=== PATIENT | male | born 1985 | race Caucasian/White ===

== ENCOUNTER 2017-01-04 21:49 | Emergency (ER) | payer BC ==
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
[2017-01-04 22:03] VITALS: BP 103/56; PULSE 82; TEMP 97.5; BMI 18.3
== END 2017-01-04 22:35 | disposition home or self-care (01) ==
LOC: FER 21:49
DX: S90.31XA Contusion of right foot, initial encounter (principal); W20.8XXA Other cause of strike by thrown, projected or falling object, initial encounter; Y93.89 Activity, other specified; Y92.9 Unspecified place or not applicable; F17.210 Nicotine dependence, cigarettes, uncomplicated
CPT/HCPCS: 73630-TC-RT; 99281-25

== ENCOUNTER 2017-02-09 12:05 | Emergency (ER) | payer BC ==
[2017-02-09 12:10] VITALS: BP 115/75; PULSE 73; TEMP 97.9; BMI 18.3
[2017-02-09] MEDS ORDERED: ONDANSETRON *ODT* 4 MG TABLET SL ONE (13:07)
[2017-02-09] MEDS ORDERED: IBUPROFEN 600 MG TABLET (FP) PO ONE ×2 (13:07→13:09)
--- NOTE | 2017-02-09 13:08 | PDOC ---
History of Present Illness - General Chief Complaint: Nausea/Vomiting Stated Complaint: NAUSEA/VOMITING Time Seen by Provider: 02/09/17 12:48 History Source: Patient Exam Limitations: No Limitations - History of Present Illness Initial Comments: 02/09/17 13:37 Patient is a 31-year-old male with no past medical history who presents to the emergency department with 2 days of nausea and vomiting after eating a salad in a restaurant. Patient states that he vomited 3 times yesterday. He states that he still remains nauseous today and has diffuse abdominal pain. He has not vomited today. Denies diarrhea, fevers, chills, constipation, frequency, urgency , hematuria, dysuria. Denies recent travel, recent antibiotic use. Past History - Travel Traveled outside of the country in the last 30 days: No Close contact w/someone who was outside of country & ill: No - Past Medical History Allergies/Adverse Reactions: Allergies Allergy/AdvReac Type Severity Reaction Status Date / Time No Known Allergies Allergy Verified 02/09/17 12:06 Home Medications: Ambulatory Orders Ondansetron [Zofran Odt -] 4 mg SL TID #21 od.tablet 02/09/17 COPD: No DVT: No Dementia: No - Immunization History Immunization Up to Date: Yes - Suicide/Smoking/Psychosocial Hx Smoking History: Current some day smoker Have you smoked in the past 12 months: Yes Number of Cigarettes Smoked Daily: 4 Information on smoking cessation initiated: No 'Breaking Loose' booklet given: 01/19/17 Hx Alcohol Use: No Drug/Substance Use Hx: No Substance Use Type: None Review of Systems - Review of Systems Able to Perform ROS?: Yes Comments:: 02/09/17 13:41 CONSTITUTIONAL: Absent: fever, chills, diaphoresis, generalized weakness, malaise, loss of appetite HEENT: Absent: rhinorrhea, nasal congestion, throat pain, throat swelling, difficulty swallowing, mouth swelling, ear pain, eye pain, visual Changes CARDIOVASCULAR: Absent: chest pain, loss of consciousness, palpitations, irregular heart rate, peripheral edema RESPIRATORY: Absent: cough, shortness of breath, dyspnea with exertion, orthopnea, wheezing, stridor, hemoptysis GASTROINTESTINAL: Present: abdominal pain, nausea, vomiting Absent: abdominal distension, diarrhea , constipation, melena, hematochezia GENITOURINARY: Absent: dysuria, frequency, urgency, hesitancy, hematuria, flank pain, genital pain MUSCULOSKELETAL: Absent: myalgia, arthralgia, joint swelling SKIN: Absent: rash, itching, pallor HEMATOLOGIC/IMMUNOLOGIC: Absent: easy bleeding, easy bruising, lymphadenopathy, frequent infections ENDOCRINE: Absent: unexplained weight gain, unexplained weight loss, heat intolerance, cold intolerance NEUROLOGIC: Absent: headache, focal weakness or paresthesias, dizziness, unsteady gait, seizure, mental status changes, bladder or bowel incontinence PSYCHIATRIC: Absent: anxiety, depression, suicidal or homicidal ideation, hallucinations. Is the patient limited Uzbek proficient: No *Physical Exam - Vital Signs Last Vital Signs Temp Pulse Resp BP Pulse Ox 97.9 F 73 16 115/75 99 02/09/17 12:07 02/09/17 12:07 02/09/17 12:07 02/09/17 12:07 02/09/17 12:07 - Physical Exam Comments: 02/09/17 13:42 GENERAL: Well developed, well nourished. Awake and alert. No acute distress. Breathing easily laying on exam bed HEENT: Normocephalic, atraumatic. PERRLA, EOMI. No conjunctival pallor. Sclera are non- icteric. Moist mucous membranes. Oropharynx is clear. NECK: Supple. Full ROM. No JVD. Carotid pulses 2+ and symmetric, without bruits. No thyromegaly. No lymphadenopathy. CARDIOVASCULAR: Regular rate and rhythm. No murmurs, rubs, or gallops. Distal pulses are 2+ and symmetric. PULMONARY: No evidence of respiratory distress. Lungs clear to auscultation bilaterally. No wheezing, rales or rhonchi. ABDOMINAL: Diffuse abdominal tendernes. (-) rovsings, obturator psoas signs. Soft. Non- distended. No rebound or guarding. No organomegaly. Normoactive bowel sounds. MUSCULOSKELETAL Normal range of motion at all joints. No bony deformities or tenderness. No CVA tenderness. EXTREMITIES: No cyanosis. No clubbing. No edema. No calf tenderness. SKIN: Warm and dry. Normal capillary refill. No rashes. No jaundice. NEUROLOGICAL: Alert, awake, appropriate. Cranial nerves 2-12 intact. No deficits to light touch and temperature in face, upper extremities and lower extremities. No motor deficits in the in face, upper extremities and lower extremities. Normoreflexic in the upper and lower extremities. Normal speech. Toes are down- going bilaterally. Gait is normal without ataxia. PSYCHIATRIC: Cooperative. Good eye contact. Appropriate mood and affect. Medical Decision Making - Medical Decision Making 02/09/17 13:43 Patient is a 31-year-old male with no past medical history who presents to the emergency department today with 2 days of nausea vomiting after eating a salad and a restaurant. Most likely an acute gastroenteritis from the food he ate. Physical exam shows diffuse tenderness with negative signs for appendicitis. We' ll treat with Zofran, Motrin and reevaluate. 02/09/17 14:19 Patient is feeling much better after Zofran and Motrin. He has been able to tolerate water and crackers in the emergency department. He states that he feels much better and is ready to go home. We'll discharge home at this time. Patient given return precautions. *DC/Admit/Observation/Transfer Diagnosis at time of Disposition: Gastroenteritis - Discharge Dispostion Disposition: HOME Condition at time of disposition: Good Admit: No - Prescriptions Prescriptions: Ondansetron [Zofran Odt -] 4 mg SL TID #21 od.tablet - Referrals Referrals: Dylan Metzger MD [Primary Care Provider] - - Patient Instructions Printed Discharge Instructions: DI for Nausea -- Adult, DI for Vomiting -- Adult Additional Instructions: You had nausea and vomiting most likely caused by food. It should be self limiting. Please eat a bland diet for the next 2-3 days including plain rice, toast, bananas, apple sauce. Avoid fatty foods, greasy/oily foods, and dairy for 24 hours until after your symptoms resolve. You were prescribed zofran as needed for nausea and vomiting. Drink plenty of fluids including gatorade or juice. Follow up with your primary care doctor this week. Return to the ED if you have worsening vomiting, fevers, dehydration, worsening abdominal pain, or any changes in your symptoms. Tuviste nuseas y vmitos muy probablemente causados por comida. Debe ser autolimitado. Por favor, coma joy dieta blanda [place] los prximos 2 o 3 parra, incluyendo arroz natural, johnson tala, pltanos y salsa de manzana. Evite las comidas grasosas, grasosas / grasas y productos lcteos [place] 24 horas hasta que desaparezcan los sntomas. Le recetaron zofran segn sea necesario para las nuseas y los vmitos. Nataliia muchos lquidos, incluido el gatorade o el jugo. Maria Luz un seguimiento con swann mdico de atencin primaria esta semana. Regrese al departamento de emergencias si tiene vmitos, fiebre, deshidratacin , empeoramiento del dolor abdominal o cualquier cambio en radha sntomas. - Post Discharge Activity Forms/Work/School Notes: Back to Work, Parent(s) Back to Work Note
[2017-02-09] MEDS ORDERED: ONDANSETRON *ODT* 4 MG TABLET ONE (13:09)
== END 2017-02-09 14:02 | disposition home or self-care (01) ==
LOC: JERFT 12:05
DX: K52.9 Noninfective gastroenteritis and colitis, unspecified (principal)
CPT/HCPCS: 99281-25

== ENCOUNTER 2017-07-02 22:43 | Emergency (ER) | payer OTHER ==
[2017-07-02 22:54] VITALS: BP 117/64; PULSE 63; TEMP 98.1; BMI 17.4
[2017-07-03] MEDS ORDERED: ACETAMINOPHEN 325 MG TABLET (FP) PO ONE (00:53)
--- NOTE | 2017-07-03 01:02 | PDOC ---
History of Present Illness <Jonathan Garcia - Last Filed: 07/03/17 03:23> - History of Present Illness Initial Comments: 07/03/17 01:02 "The patient is a 31 year old male, with no significant past medical history, who presents to the emergency department with right sided neck, back, shoulder, and hand pain s/p injury earlier this evening. The patient reports he was at work mopping, when a table that was standing on its end, tipped over and fell forward, hitting his shoulder and upper back. Patient reports associated neck, back, shoulder, and hand pain. He denies any head trauma, LOC, headache, dizziness, lightheadedness, changes in vision, nausea, vomiting, changes in gait. Patient reports his pain is worse with palpation, but not with movement. He denies any other trauma. He denies any chest pain or shortness of breath. Allergies: NKDA Past Surgical History: None reported Social History: Non smoker. No ETOH or recreational drug use. PCP: Dr. Metzger " <Michael Tripathi - Last Filed: 07/04/17 17:19> - General Chief Complaint: Pain, Acute Stated Complaint: INJURY Time Seen by Provider: 07/03/17 00:37 Past History <Jonathan Garcia - Last Filed: 07/03/17 03:23> - Past Medical History COPD: No DVT: No Dementia: No - Immunization History Immunization Up to Date: Yes - Suicide/Smoking/Psychosocial Hx Smoking History: Never smoked Have you smoked in the past 12 months: No Number of Cigarettes Smoked Daily: 4 Information on smoking cessation initiated: No 'Breaking Loose' booklet given: 01/19/17 Hx Alcohol Use: No Drug/Substance Use Hx: No Substance Use Type: None <Michael Tripathi - Last Filed: 07/04/17 17:19> - Past Medical History Allergies/Adverse Reactions: Allergies Allergy/AdvReac Type Severity Reaction Status Date / Time No Known Allergies Allergy Verified 07/03/17 13:25 Home Medications: Ambulatory Orders NK [No Known Home Medication] 07/03/17 Review of Systems - Review of Systems Comments:: 07/03/17 01:02 "GENERAL/CONSTITUTIONAL: No fever or chills. No weakness. HEAD, EYES, EARS, NOSE AND THROAT: No change in vision. No ear pain or discharge. No sore throat. CARDIOVASCULAR: No chest pain or shortness of breath. RESPIRATORY: No cough, wheezing, or hemoptysis. GASTROINTESTINAL: No nausea, vomiting, diarrhea or constipation. GENITOURINARY: No dysuria, frequency, or change in urination. MUSCULOSKELETAL: Yes right sided neck, upper back, shoulder, and hand pain. SKIN: No rash NEUROLOGIC: No headache, vertigo, loss of consciousness, or change in strength. ENDOCRINE: No increased thirst. No abnormal weight change. HEMATOLOGIC/LYMPHATIC: No anemia, easy bleeding, or history of blood clots. ALLERGIC/IMMUNOLOGIC: No hives or skin allergy." <DeuceMichael - Last Filed: 07/04/17 17:19> *Physical Exam - Vital Signs Last Vital Signs Temp Pulse Resp BP Pulse Ox 98.1 F 63 16 117/64 100 07/02/17 22:53 07/02/17 22:53 07/02/17 22:53 07/02/17 22:53 07/02/17 22:53 <Jonathan Garcia - Last Filed: 07/03/17 03:23> - Vital Signs Last Vital Signs Temp Pulse Resp BP Pulse Ox 98.1 F 63 16 117/64 100 07/02/17 22:53 07/02/17 22:53 07/02/17 22:53 07/02/17 22:53 07/02/17 22:53 - Physical Exam Comments: 07/03/17 01:00 "GENERAL: Awake, alert, and fully oriented, in no acute distress. HEAD: No signs of trauma EYES: PERRLA, EOMI, sclera anicteric, conjunctiva clear ENT: Auricles normal inspection, hearing grossly normal, nares patent, oropharynx clear without exudates. Moist mucosa NECK: (+) Mild tenderness at C-6,7 and T 3-4, no stepoffs, Normal ROM, supple, no lymphadenopathy, JVD, or masses LUNGS: Breath sounds equal, clear to auscultation bilaterally. No wheezes, and no crackles HEART: Regular rate and rhythm, normal S1 and S2, no murmurs, rubs or gallops ABDOMEN: Soft, nontender, normoactive bowel sounds. No guarding, no rebound. No masses EXTREMITIES: (+) abrasion to R spine of scapula with tenderness, (+) tenderness 5th metatarsal R hand, Normal range of motion, no edema. No clubbing or cyanosis. No cords, erythema, or tenderness NEUROLOGICAL: Cranial nerves II through XII intact. 5/5 strength and sensation in all extremities, Normal speech, normal gait, normal cerebellar function SKIN: Warm, Dry, normal turgor, no rashes or lesions noted. " <Michael Tripathi - Last Filed: 07/04/17 17:19> ED Treatment Course - Medications Given in the ED: ED Medications Discontinued Medications Generic Name Dose Route Start Last Admin Trade Name Freq PRN Reason Stop Dose Admin Acetaminophen 650 mg 07/03/17 00:53 07/03/17 01:29 Tylenol - PO 07/03/17 00:54 650 mg ONCE ONE Administration Diphtheria/Tetanus/Acell Pertussis 0.5 ml 07/03/17 02:10 07/03/17 03:19 Boostrix - IM 07/03/17 02:11 0.5 ml .ONCE ONE Administration <Jonathan Garcia - Last Filed: 07/03/17 03:23> - RADIOLOGY Radiology Studies Ordered: Category Date Time Status CERVICAL SPINE CT W/O CONTR [CT] Stat CT Scan 07/03/17 00:[address] W/O CONTRAST [CT] Stat CT Scan 07/03/17 00:52 Ordered SCAPULA [RAD] Stat Radiology 07/03/17 00:52 Ordered SHOULDER-RIGHT [RAD] Stat Radiology 07/03/17 00:52 Ordered WRIST W/HAND-RIGHT* [RAD] Stat Radiology 07/03/17 00:53 Ordered <Michael Tripathi - Last Filed: 07/04/17 17:19> Medical Decision Making - Medical Decision Making 07/03/17 00:57 31 M with neck, back, RUE pain after wooden table tipped over and fell onto him. No evidence of head injury. Given C and T-spine tenderness, will obtain CT scan. Also XRs to r/o scapula, shoulder, and 5th metatarsal fx. - CT C/T-spine - XR R scapula, shoulder, wrist and hand - Pain control 07/03/17 02:10 Pt signed out to oncoming attending, pending imaging results and re-evaluation. <Michael Tripathi - Last Filed: 07/04/17 17:19> *DC/Admit/Observation/Transfer <Jonathan Garcia - Last Filed: 07/03/17 03:23> - Attestations Physician Attestion: 07/04/17 17:19 I, Dr. Michael Tripathi MD, attest that this document has been prepared under my direction and personally reviewed by me in its entirety. I further attest, that it accurately reflects all work, treatment, procedures and medical decision -making performed by me. <Michael Tripathi - Last Filed: 07/04/17 17:19> Diagnosis at time of Disposition: Work related injury Right wrist sprain Qualifiers: Encounter type: initial encounter Qualified Code(s): S63.501A - Unspecified sprain of right wrist, initial encounter Sprain of shoulder, right Qualifiers: Encounter type: initial encounter - Discharge Dispostion Disposition: HOME Condition at time of disposition: Stable - Referrals Referrals: Dylan Metzger MD [Primary Care Provider] - - Patient Instructions Printed Discharge Instructions: DI for Wrist Sprain, DI for Shoulder Sprain Additional Instructions: Take Tylenol or Motrin for pain as needed Print Language: SLOVAK - Post Discharge Activity Forms/Work/School Notes: Back to Work
[2017-07-03] MEDS ORDERED: ACETAMINOPHEN 325 MG TABLET (FP) ONE (01:26)
[2017-07-03] MEDS ORDERED: DIPHTH,PERTUSS(ACELL),TET 0.5 ML DISP.SYRIN IM ONE (02:10)
--- NOTE | 2017-07-03 03:12 | PDOC ---
*Physical Exam - Vital Signs Last Vital Signs Temp Pulse Resp BP Pulse Ox 98.1 F 63 16 117/64 100 07/02/17 22:53 07/02/17 22:53 07/02/17 22:53 07/02/17 22:53 07/02/17 22:53 ED Treatment Course - Medications Given in the ED: ED Medications Discontinued Medications Generic Name Dose Route Start Last Admin Trade Name Tomas PRN Reason Stop Dose Admin Acetaminophen 650 mg 07/03/17 00:53 07/03/17 01:29 Tylenol - PO 07/03/17 00:54 650 mg ONCE ONE Administration *DC/Admit/Observation/Transfer Diagnosis at time of Disposition: Work related injury Right wrist sprain Qualifiers: Encounter type: initial encounter Qualified Code(s): S63.501A - Unspecified sprain of right wrist, initial encounter Sprain of shoulder, right Qualifiers: Encounter type: initial encounter - Discharge Dispostion Disposition: HOME Condition at time of disposition: Stable Admit: No - Prescriptions Prescriptions: Ibuprofen [Motrin -] 600 mg PO TID #30 tablet Methocarbamol [Robaxin -] 500 mg PO TID #30 tablet - Referrals Referrals: Dylan Metzger MD [Primary Care Provider] - - Patient Instructions Printed Discharge Instructions: DI for Shoulder Sprain, DI for Wrist Sprain Additional Instructions: Take Tylenol or Motrin for pain as needed Print Language: LEBANESE - Post Discharge Activity Forms/Work/School Notes: Back to Work
== END 2017-07-03 03:23 | disposition home or self-care (01) ==
LOC: JER 22:43
PROC: 3E0234Z Introduction of Serum, Toxoid and Vaccine into Muscle, Percutaneous Approach (ICD-10-PCS; principal; 2017-07-02)
DX: S29.8XXA Other specified injuries of thorax, initial encounter (principal); S39.82XA Other specified injuries of lower back, initial encounter; W20.8XXA Other cause of strike by thrown, projected or falling object, initial encounter; Y93.E5 Activity, floor mopping and cleaning; Y92.59 Other trade areas as the place of occurrence of the external cause; Y99.0 Civilian activity done for income or pay
CPT/HCPCS: 72125-TC; 72128-TC; 73010-TC-FY; 73030-TC-RT-FY; 73110-TC-RT-FY; 73130-TC-RT-FY; 90715; 99281-25

== ENCOUNTER 2017-07-03 13:23 | Emergency (ER) | payer OTHER ==
[2017-07-03 13:50] VITALS: BP 111/81; PULSE 82; TEMP 97.8; BMI 17.3
[2017-07-03] MEDS ORDERED: IBUPROFEN 400 MG TABLET (FP) PO ONE ×2 (13:57→14:00)
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
== END 2017-07-03 14:06 | disposition home or self-care (01) ==
LOC: FER 13:23
DX: Z04.2 Encounter for examination and observation following work accident (principal); W20.8XXA Other cause of strike by thrown, projected or falling object, initial encounter; Y93.89 Activity, other specified; Y92.239 Unspecified place in hospital as the place of occurrence of the external cause; Y99.0 Civilian activity done for income or pay
CPT/HCPCS: 99282-25

== ENCOUNTER 2017-07-31 18:36 | Emergency (ER) | payer SELFPAY ==
--- NOTE | 2017-07-31 19:23 | PDOC ---
History of Present Illness - General History Source: Patient Exam Limitations: No Limitations - History of Present Illness Initial Comments: 07/31/17 19:53 A portion of this note was documented by scribe services under my direction. I have reviewed the details of the note, within reason, and agree with the documentation. The case summary and management plan written by me. Assessment and plan: This is a 31-year-old male who has probably one month of chronic neck pain and spasm secondary to a work related injury. Patient has a pain specialist he also has an orthopedist and a workman's comp doctor that he is following up with. Patient said the pain was too much tonight so he was told to come to the emergency room. Patient was given Toradol here and Flexeril. A prescription was sent to his pharmacy for Flexeril. Patient will keep doctor's appointments for next week and continue to follow up with his doctors as recommended. Patient discharged home with with his significant other <Fiordaliza Mtz I - Last Filed: 07/31/17 19:53> - General History Source: Patient Exam Limitations: No Limitations - History of Present Illness Initial Comments: The patient is a 31 year old male who presents to the emergency department for evaluation of 5 day history of right side posterior neck pain. The patient reports moderate right side posterior neck pain radiating to right shoulder and right arm. He describes the pain as sharp and "unbearable", ranked 7/10 in severity. He reports weakness in right hand strength with associated numbness in fingers. He reports taking liquid Aleve 4 times a day with mild alleviation. He reports he has taken muscle relaxers, but discontinued because he "did not like the way it made him feel". to the The patient reports this injury is from an work related accident which he visited the ED for in 07/02. He reports he has since followed up with pain management doctor as well as an orthopedist. He reports the bruising from the banquet table that fell on him has subsided, but the pain has increased substantially prompting him to visit the ED for further evaluation. The patient reports he plans to follow up with this orthopedist Dr. Christianson. The patient denies chest pain, shortness of breath, headache, and dizziness. Denies fevers, chills, nausea, vomiting, diarrhea, and constipation. Denies dysuria, frequency, urgency, and hematuria. PAST MEDICAL HISTORY: no significant history PAST SURGICAL HISTORY: no significant history FAMILY HISTORY: no pertinent history SOCIAL HISTORY: Pt lives with family and is employed. MEDICATIONS: reviewed ALLERGIES: As per nursing notes ROS General: No fevers or chills, no weakness, no weight loss HEENT: (+)Dorsal, right sided neck pain.No change in vision. No sore throat,. No ear pain Cardiovascular: No chest pain or shortness of breath Respiratory:No cough, or wheezing. Gastrointestinal: no nausea, vomiting, diarrhea or constipation, No rectal bleeding Genitourinary: No dysuria, hematuria, or frequency Musculoskeletal: (+)Right shoulder pain. (+)Right arm pain. No joint pain or swelling Neurologic: No headache, vertigo, dizziness or loss of consciousness Psychiatric: nor depression Skin: No rashes or easy bruising Endocrine: no increased thirst or abnormal weight change Allergic: no skin or latex allergy All other systems reviewed and normal PE GENERAL: The patient is awake, alert, and fully oriented, in no acute distress. HEAD: Normal with no signs of trauma. EYES: Pupils equal, round and reactive to light, extraocular movements intact, sclera anicteric, conjunctiva clear. NECK: (+)tenderness to palpation of lateral neck with spasm. Decreased range of motion of neck secondary to pain and spasm. EXTREMITIES: (+)Decreased range of motion to right arm secondary to discomfort, otherwise normal. No edema. NEUROLOGICAL: Normal speech, normal gait. PSYCH: Normal mood, normal affect. SKIN: Warm, Dry, normal turgor, no rashes or lesions noted. <Criselda Curry - Last Filed: 07/31/17 20:08> - General Chief Complaint: Pain Stated Complaint: NECK PAIN Time Seen by Provider: 07/31/17 18:38 Past History - Past Medical History COPD: No DVT: No Dementia: No - Immunization History Immunization Up to Date: Yes - Suicide/Smoking/Psychosocial Hx Smoking History: Current some day smoker Have you smoked in the past 12 months: Yes Number of Cigarettes Smoked Daily: 2 'Breaking Loose' booklet given: 07/03/17 Hx Alcohol Use: Yes (SOCIAL) Drug/Substance Use Hx: No Substance Use Type: Alcohol <Fiordaliza Mtz I - Last Filed: 07/31/17 19:53> <rCiselda Curry - Last Filed: 07/31/17 20:08> - Past Medical History Allergies/Adverse Reactions: Allergies Allergy/AdvReac Type Severity Reaction Status Date / Time No Known Allergies Allergy Verified 07/31/17 18:43 Home Medications: Ambulatory Orders Cyclobenzaprine HCl [Flexeril -] 5 mg PO HS #30 tablet 07/31/17 Ibuprofen [Advil -] 200 mg PO TID PRN 07/31/17 *Physical Exam - Vital Signs Last Vital Signs Temp Pulse Resp BP Pulse Ox 98.4 F 80 16 111/79 100 07/31/17 18:37 07/31/17 18:37 07/31/17 18:37 07/31/17 18:37 07/31/17 18:37 <Criselda Curry - Last Filed: 07/31/17 20:08> ED Treatment Course - Medications Given in the ED: ED Medications Discontinued Medications Generic Name Dose Route Start Last Admin Trade Name Freq PRN Reason Stop Dose Admin Cyclobenzaprine HCl 5 mg 07/31/17 19:29 07/31/17 19:40 Flexeril - PO 07/31/17 19:30 5 mg ONCE ONE Administration Ketorolac Tromethamine 60 mg 07/31/17 19:29 07/31/17 19:40 Toradol Injection - IM 07/31/17 19:30 60 mg ONCE ONE Administration <Criselda Curry - Last Filed: 07/31/17 20:08> *DC/Admit/Observation/Transfer - Discharge Dispostion Decision to Admit order: No <Fiordaliza Mtz I - Last Filed: 07/31/17 19:53> - Attestations Scribe Attestion: Documentation prepared by Criselda Curry, acting as biomedical electronics technician for Fiordaliza Mtz MD. <Criselda Curry - Last Filed: 07/31/17 20:08> Diagnosis at time of Disposition: Neck muscle spasm - Discharge Dispostion Disposition: HOME Condition at time of disposition: Good - Prescriptions Prescriptions: Cyclobenzaprine HCl [Flexeril -] 5 mg PO HS #30 tablet - Referrals Referrals: Jonathon Wilhelm MD [Staff Physician] - Dylan Metzger MD [Primary Care Provider] - - Patient Instructions Additional Instructions: Continue the Advil as prescribed for pain. Take the Flexeril one tablet before bed to help with the spasm if you find that it is too strong you can cut it in half. Keep your appointment with your doctors. Return to the emergency department immediately with ANY new, persistent or worsening symptoms. Continue any medications as previously prescribed by your physician. You should follow up with your primary doctor as soon as possible regarding today's emergency department visit. . Please make sure your doctor reviews the results of your emergency evaluation. Thank you for coming to the Emergency Department today for your care. It was a pleasure to see you today. Please note that your evaluation is INCOMPLETE until you follow-up with your doctor. - Post Discharge Activity
[2017-07-31] MEDS ORDERED: KETOROLAC TROMETHAMINE 60 MG/2 ML VIAL IM ONE (19:29)
[2017-07-31] MEDS ORDERED: CYCLOBENZAPRINE HCL 10 MG TABLET (FP) PO ONE (19:29)
[2017-07-31] MEDS ORDERED: KETOROLAC TROMETHAMINE 60 MG/2 ML VIAL ONE (19:36)
[2017-07-31] MEDS ORDERED: CYCLOBENZAPRINE HCL 10 MG TABLET (FP) ONE (19:36)
[2017-07-31 19:45] VITALS: BP 111/79; PULSE 80; TEMP 98.4; BMI 17.3
== END 2017-07-31 19:56 | disposition home or self-care (01) ==
LOC: FER 18:36
PROC: 3E0233Z Introduction of Anti-inflammatory into Muscle, Percutaneous Approach (ICD-10-PCS; principal; 2017-07-31)
DX: M62.838 Other muscle spasm (principal)
CPT/HCPCS: 99282-25

== ENCOUNTER 2018-06-28 22:03 | Emergency (ER) | payer OTHER ==
[2018-06-28 22:09] VITALS: BP 126/88; PULSE 72; TEMP 97.7; BMI 19.1
--- NOTE | 2018-06-28 22:13 | PDOC ---
History of Present Illness - General Chief Complaint: Chronic pain Stated Complaint: R NECK/ARM PAIN Time Seen by Provider: 06/28/18 22:13 History Source: Patient - History of Present Illness Initial Comments: 06/28/18 22:29 pt presents to the ED complaining of acute exacerbation of his chronic R neck pain that he has had since a work accident last year. Patient returned to work in May, and has been experiencing worsening of his neck pain since his return to work. Denies new injury, weakness or numbness in his arm. Was seen by his pain management physician, and has an appointment to have a cortisol injection. He has been taking advil for the pain without relief. He last took 600 mg 4 hours ago. Past History - Past Medical History Allergies/Adverse Reactions: Allergies Allergy/AdvReac Type Severity Reaction Status Date / Time No Known Allergies Allergy Verified 07/31/17 18:43 Home Medications: Ambulatory Orders Cyclobenzaprine HCl [Flexeril -] 5 mg PO HS #30 tablet 07/31/17 Ibuprofen [Advil -] 200 mg PO TID PRN 07/31/17 COPD: No DVT: No Dementia: No - Immunization History Immunization Up to Date: Yes - Suicide/Smoking/Psychosocial Hx Smoking History: Unknown if ever smoked Have you smoked in the past 12 months: No Number of Cigarettes Smoked Daily: 0 Information on smoking cessation initiated: No 'Breaking Loose' booklet given: 07/03/17 Hx Alcohol Use: No Drug/Substance Use Hx: No Substance Use Type: Alcohol Review of Systems - Review of Systems Able to Perform ROS?: Yes Is the patient limited Malian proficient: No Constitutional: No: Symptoms Reported, See HPI, Chills, Diaphoresis, Fever, Loss of Appetite, Malaise, Night Sweats, Weakness, Weight Stable, Unintentional Wgt. Loss, Unexplained wgt Loss, Other HEENTM: No: Symptoms Reported, See HPI, Eye Pain, Blurred Vision, Tearing, Recent change in vision, Double Vision, Cataracts, Ear Pain, Ocular Prothesis, Ear Discharge, Nose Pain, Nose Congestion, Tinnitus, Nose Bleeding, Hearing Loss , Throat Pain, Throat Swelling, Mouth Pain, Dental Problems, Difficulty Swallowing, Mouth Swelling, Other Respiratory: No: Symptoms reported, See HPI, Cough, Orthopnea, Shortness of Breath, SOB with Exertion, SOB at Rest, Stridor, Wheezing, Productive cough, Hemoptysis, Other Cardiac (ROS): No: Symptoms Reported, See HPI, Chest Pain, Edema, Irregular Heart Rate, Lightheadedness, Palpitations, Syncope, Chest Tightness, Other ABD/GI: No: Symptoms Reported, See HPI, Abdominal Distended, Abd. Pain w/ defecation, Blood Streaked Bowels, Constipated, Diarrhea, Difficulty Swallowing , Nausea, Poor Appetite, Poor Fluid Intake, Rectal Bleeding, Vomiting, Indigestion, Abdominal cramping, Tarry Stools, Other : No: Symptoms Reported, See HPI, Burning, Dysuria, Discharge, Frequency, Flank Pain, Hematuria, Incontinence, Pain, Urgency, Testicular Mass, Testicular Swelling, Lesions, Testicular Pain, Other Musculoskeletal: Yes: Neck Pain *Physical Exam - Vital Signs Last Vital Signs Temp Pulse Resp BP Pulse Ox 97.7 F 72 14 126/88 100 06/28/18 22:06 06/28/18 22:06 06/28/18 22:06 06/28/18 22:06 06/28/18 22:06 - Physical Exam General Appearance: Yes: Nourished, Appropriately Dressed HEENT: positive: Normal ENT Inspection Neck: positive: Tender (R paraspinal tenderness. No tenderness over the spinous processes.), Supple Respiratory/Chest: positive: Lungs Clear, Normal Breath Sounds Cardiovascular: positive: Regular Rhythm, Regular Rate, S1, S2 Musculoskeletal: positive: Normal Inspection Extremity: positive: Normal Inspection, Normal Range of Motion Integumentary: positive: Normal Color, Dry, Warm Neurologic: positive: Fully Oriented, Alert Medical Decision Making - Medical Decision Making 06/28/18 22:33 Pt presents to the Ed complaining of acute exacerbation of his chronic neck pain. Denies other complaints. Asking for toradol injection, but patient has recently taken motrin. Will treat with injection of ativan and discharge home. PAteint will follow up with his pain management physician tomorrow. *DC/Admit/Observation/Transfer Diagnosis at time of Disposition: Neck muscle spasm - Discharge Dispostion Disposition: HOME Condition at time of disposition: Good Decision to Admit order: No - Referrals - Patient Instructions Printed Discharge Instructions: DI for Chronic Neck Pain Additional Instructions: You came to the ED for pain in your neck, which is similar to the pain that you have had in the past from your accident. We gave you an injection of a muscle relaxant called Patrizia in the ED. You will likely be quite sleepy, and should have your drive you home and go immediately to bed. You should call your pain management or primary care doctor for follow up in the morning. You should return to the ED for severe pain, pain with weakness in your fingers or hands, other new or worsening symptoms. - Post Discharge Activity
[2018-06-28] MEDS ORDERED: diazePAM CARPU-JECT 10 MG/2 ML DISP.SYRIN IM ONE (22:21)
[2018-06-28] MEDS ORDERED: LORazepam 2 MG/ML SDV VIAL ONE (22:36)
== END 2018-06-28 22:54 | disposition home or self-care (01) ==
LOC: FER 22:03
CPT/HCPCS: 99282-25

== ENCOUNTER 2019-01-15 19:23 | Emergency (ER) | payer OTHER, BC ==
[2019-01-15 19:35] VITALS: BP 114/85; PULSE 71; TEMP 97.3; BMI 19.1
[2019-01-15] MEDS ORDERED: KETOROLAC TROMETHAMINE 60 MG/2 ML VIAL ONE (19:45)
[2019-01-15] MEDS ORDERED: KETOROLAC TROMETHAMINE 60 MG/2 ML VIAL IM ONE (19:53)
--- NOTE | 2019-01-15 19:56 | PDOC ---
Documentation entered by Luiza Tomlin SCRIBE, acting as scribe for Fiordaliza Mtz MD. Fiordaliza Mtz MD: This documentation has been prepared by the lovelyibNabor joseph Lincy, SCRIBE, under my direction and personally reviewed by me in its entirety. I confirm that the documentation accurately reflects all work , treatment, procedures, and medical decision making performed by me. History of Present Illness - General Chief Complaint: Pain Stated Complaint: CHRONIC PAIN History Source: Patient Exam Limitations: No Limitations - History of Present Illness Initial Comments: 01/15/19 19:55 The patient is a 33-year-old male who presents to the emergency department with right-hand pain. The patient reports chronic right-hand pain, s/p a work- related injury to the hand on July 02, 2017. The patient reports following up with the [employer] pain management doctor, who does epidural shot for the pain management with relief, however, due to [employer], he is only able to get 3 shots a year, next appointment mid-February. The patient reports he was also prescribed a muscle relaxant, which he states is noncompliant with because of nausea and dry mouth but states if the pain becomes unbearable, he does take the medication. The patient presents today because of the pain worsened. The patient reports he may have slept on the hand last night, and he woke up today with severe pain. Denies taking the muscle relaxant medication. The patient presents to get medicine to alleviate the pain. PAST MEDICAL HISTORY: Chronic right hand pain PAST SURGICAL HISTORY: no significant history FAMILY HISTORY: no pertinent history SOCIAL HISTORY: Pt lives with family and is employed. MEDICATIONS: reviewed ALLERGIES: As per nursing notes Review of system: General: No fevers or chills, no weakness, no weight loss HEENT: No change in vision. No sore throat,. No ear pain CardioVascular: No chest pain or shortness of breath Respiratory:No cough, or wheezing. Gastrointestinal: no nausea, vomiting, diarrhea or constipation, No rectal bleeding Genitourinary: No dysuria, hematuria, or frequency Musculoskeletal: No joint or muscle pain or swelling Neurologic: No headache, vertigo, dizziness or loss of consciousness Psychiatric: nor depression Skin: No rashes or easy bruising Endocrine: no increased thirst or abnormal weight change Allergic: no skin or latex allergy All other systems reviewed and normal Physical exam: GENERAL: The patient is awake, alert, and fully oriented, in no acute distress. HEAD: Normal with no signs of trauma. EYES: Pupils equal, round and reactive to light, extraocular movements intact, sclera anicteric, conjunctiva clear. EXTREMITIES: No swelling, ecchymosis, or redness. Neurovascularly intact. Diffuse tenderness on palpation over the dorsum aspect of the hand, with hypersensitivity to touch. Rest of the extremities: Normal range of motion, no edema. NEUROLOGICAL: Normal speech, normal gait. PSYCH: Normal mood, normal affect. SKIN: Warm, Dry, normal turgor, no rashes or lesions noted. Assessment and plan: This is a 33-year-old male who comes in complaining of right arm and hand pain. Patient has a history of a work-related injury from a year and a half ago with chronic ongoing pain. Patient is being managed by a pain specialist but does not like to take the medication that he is supposed to take secondary to it making his stomach upset. So patient has not been compliant with his pain medication. Patient came in because he is looking for something that is a shot rather than oral. Patient given a shot of Toradol and recommended that he follow-up with his pain specialist. Past History - Past Medical History Allergies/Adverse Reactions: Allergies Allergy/AdvReac Type Severity Reaction Status Date / Time No Known Allergies Allergy Verified 07/31/17 18:43 Home Medications: Ambulatory Orders Butalb/Acetaminophen/Caffeine [[id number]] 1 each PO TID 04/04 Gabapentin 300 mg PO TID 01/15/19 Meloxicam 15 mg PO DAILY 01/15/19 COPD: No DVT: No Dementia: No Other medical history: WORK RELATED INJURY RT ARM - Immunization History Immunization Up to Date: Yes - Psycho Social/Smoking Cessation Hx Smoking History: Never smoked Have you smoked in the past 12 months: No Number of Cigarettes Smoked Daily: 0 'Breaking Loose' booklet given: 07/03/17 Hx Alcohol Use: No Drug/Substance Use Hx: No Substance Use Type: Alcohol *Physical Exam - Vital Signs Last Vital Signs Temp Pulse Resp BP Pulse Ox 97.3 F L 71 16 114/85 100 01/15/19 19:31 01/15/19 19:31 01/15/19 19:31 01/15/19 19:31 01/15/19 19:31 Discharge - Discharge Information Problems reviewed: Yes Clinical Impression/Diagnosis: Right wrist sprain Qualifiers: Encounter type: initial encounter Qualified Code(s): S63.501A - Unspecified sprain of right wrist, initial encounter Condition: Stable - Follow up/Referral Referrals: Dylan Metzger MD [Primary Care Provider] - - Patient Discharge Instructions Additional Instructions: It is important that when you follow-up with your pain specialist next time that you will your pain specialist now that the medication that he is given you is irritating your stomach and ask him if there is something else that you can take that is less irritating to your stomach or in injection form. Return to the emergency department immediately with ANY new, persistent or worsening symptoms. Continue any medications as previously prescribed by your physician. You should follow up with your primary doctor as soon as possible regarding today's emergency department visit. . Please make sure your doctor reviews the results of your emergency evaluation. Thank you for coming to the Emergency Department today for your care. It was a pleasure to see you today. Please note that your evaluation is INCOMPLETE until you follow-up with your doctor. - Post Discharge Activity Work/Back to School Note: Back to Work
== END 2019-01-15 20:01 | disposition home or self-care (01) ==
LOC: FER 19:23
PROC: 3E0233Z Introduction of Anti-inflammatory into Muscle, Percutaneous Approach (ICD-10-PCS; principal; 2019-01-15)
DX: S63.501A Unspecified sprain of right wrist, initial encounter (principal); X58.XXXA Exposure to other specified factors, initial encounter; Y93.89 Activity, other specified; Y92.89 Other specified places as the place of occurrence of the external cause; Y99.0 Civilian activity done for income or pay
CPT/HCPCS: 99282-25

== ENCOUNTER 2021-09-23 19:05 | Emergency (ER) | payer BC ==
[2021-09-23 19:17] VITALS: TEMP 98.6; BMI 18.3
[2021-09-23] MEDS ORDERED: ACETAMINOPHEN 325 MG TABLET (FP) PO ONE (19:35)
[2021-09-23] MEDS ORDERED: ACETAMINOPHEN 325 MG TABLET (FP) ONE (19:53)
[2021-09-23] MEDS ORDERED: DIPHTH,PERTUSS(ACELL),TET 0.5 ML DISP.SYRIN IM ONE ×2 (20:07→20:21)
[2021-09-23 21:57] VITALS: BP 122/72; PULSE 96
[2021-09-23 22:26] LABS: HIV INTERPRETATION NEGATIVE (NEGATIVE)
== END 2021-09-23 21:57 | disposition home or self-care (01) ==
LOC: FER 19:05
PROC: 3E0234Z Introduction of Serum, Toxoid and Vaccine into Muscle, Percutaneous Approach (ICD-10-PCS; principal; 2021-09-23)
DX: S30.1XXA Contusion of abdominal wall, initial encounter (principal); S30.0XXA Contusion of lower back and pelvis, initial encounter; Y04.0XXA Assault by unarmed brawl or fight, initial encounter
CPT/HCPCS: 36415; 70450-TC; 71111-TC-FY; 73030-TC-RT-FY; 86705; 86707; 86803; 87350; 87389; 87517; 90471; 90715; 99285-25

== ENCOUNTER 2023-08-31 12:59 | Emergency (ER) | payer BC ==
[2023-08-31 13:06] VITALS: BP 116/72; PULSE 106; RESP 18; TEMP 99.1; BMI 18.3
[2023-08-31] MEDS ORDERED: AMOX TR/POT CLAV 875MG/125MG TABLETS (FP) ONE (13:18)
[2023-08-31] MEDS: AMOX TR/POT CLAV 875MG/125MG TABLETS (FP) PO ONE (13:19)
== END 2023-08-31 13:40 | disposition home or self-care (01) ==
LOC: FER 12:59
DX: K08.89 Other specified disorders of teeth and supporting structures (principal)
CPT/HCPCS: 99283-25